=== PATIENT | female | born 1965 | race African-American/Black ===

== ENCOUNTER 2018-11-28 13:03 | Emergency (ER) | payer OTHER ==
[~2018-11-28] VITALS: Ht 167.6 cm; Wt 136.1 kg
[~2018-11-28 13:03] MED LIST: ASPI-1205 PO; LEVE1000 PO; LISI-420 PO; METO25TA PO
--- NOTE | 2018-11-28 13:20 | NUR ---
PT WHEELCHAIRED TO ER BED 01
[2018-11-28 13:30] VITALS: BP 131/66
--- NOTE | 2018-11-28 14:00 | NUR ---
PT BIB FAMILY TO ER WITH C/O GENERALISED WEAKNESS SINCE THIS MORNING. PER PT , GOT BAD ESPINAL , TOOK HYDRALAZINE 50 MG, METOPROLOL 50 MG AND ASPIRIN 81 MH AT [facility]. PT ALSO TOOK 50 MG HYDRALIZINE AT HOME BEFORE GOING TO [facility]. PT HAS RT SIDED WEAKNESS DUE TO STROKE IN 2014. CMS PRESENT ON BOTH HAND, DENIES ANY CHEST PAIN AT THIS TIME, CLEAR SPEECH, AOX4. AT THE BEDSIDE. ER MD TO SEE THE PT. HX-- STROKE 2015, HTN, SIEZURE MEDS: METOPROLOL, HYDRALIZINE, ASPIRIN ALLERGIC TO PCN
[2018-11-28] MEDS ORDERED: MECLIZINE 25 MG TAB PO ONE (14:20)
[2018-11-28] MEDS ORDERED: ONDANSETRON 4 MG/2 ML VIAL IVP ONE ×2 (14:20)
[2018-11-28] MEDS ORDERED: FAMOTIDINE 20 MG/2 ML VIAL IVP ONE (14:20)
[2018-11-28] MEDS ORDERED: NACL 0.9% 1,000 ML IV ONE (14:20)
[2018-11-28 14:47] LABS: BASOPHILS # (AUTO) 0.1 K/uL (0.00-0.22); BASOPHILS % (AUTO) 1.2 % (0.0-2.0); EOSINOPHILS # (AUTO) 0.2 K/uL (0-0.4); EOSINOPHILS % (AUTO) 2.8 % (0.0-4.0); HEMATOCRIT 34.1 % (36-48); HEMOGLOBIN 10.6 g/dL (12.0-16.0); LYMPHOCYTES # (AUTO) 2.4 K/uL (2.5-16.5); LYMPHOCYTES % (AUTO) 38.7 % (20.5-51.1); MEAN CORPUSCULAR HEMOGLOBIN 24 pg (27-31); MEAN CORPUSCULAR HGB CONC 31 g/dL (33-37); MEAN CORPUSCULAR VOLUME 76.6 fL (80-94); MONOCYTES # (AUTO) 0.5 K/uL (0.8-1.0); MONOCYTES % (AUTO) 7.5 % (1.7-9.3); NEUTROPHILS # (AUTO) 3.1 K/uL (1.8-7.7); NEUTROPHILS % (AUTO) 49.8 % (42.2-75.2); PLATELET COUNT (AUTO) 287 K/uL (140-450); RED BLOOD CELL COUNT(AUTO) 4.46 MIL/uL (4.20-5.40); RED CELL DISTRIBUTION WIDTH 16.1 % (11.6-13.7); WHITE BLOOD COUNT (AUTO) 6.1 K/uL (4.8-10.8)
[2018-11-28 14:50] LABS: APPEARANCE,URINE SL CLOUDY (CLEAR); BILIRUBIN,URINE NEGATIVE (NEGATIVE); BLOOD, URINE NEGATIVE (NEGATIVE); COLOR,URINE YELLOW (YELLOW); LEUKOCYTE ESTERASE ,URINE NEGATIVE (NEGATIVE); NITRITE, URINE NEGATIVE (NEGATIVE); UGLUCOSE NEGATIVE (NEGATIVE)
--- NOTE | 2018-11-28 15:00 | NUR ---
x-ray at bedside
[2018-11-28 15:04] LABS: ACETONE, SERUM NEGATIVE (NEGATIVE); ALBUMIN 2.8 g/dL (3.4-5.0); AMYLASE 47 U/L (25-115); ANION GAP 6.1 (8-16); ASPARTATE AMINOTRANSFERASE 21 U/L (15-37); CARBON DIOXIDE 33.1 mmol/L (21-32); CHLORIDE 101 mmol/L (98-107); CREATININE 0.9 mg/dL (0.6-1.3); GFR ARICAN-AMERICAN 85 mL/min (>90); GLUCOSE 97 mg/dL (74-106); LIPASE 74 U/L (73-393); MAGNESIUM 1.7 mg/dL (1.8-2.4); POTASSIUM 4.2 mmol/L (3.5-5.1); SODIUM SERUM 136 mmol/L (136-145); TOTAL BILIRUBIN 0.2 mg/dL (0.0-1.0); UREA NITROGEN, BLOOD 15 mg/dL (7-18)
--- NOTE | 2018-11-28 15:34 | NUR ---
PT WT [address] UNABLE TO BE COMPLETED, MACHINE CAPACITY 350 LBS. AWARE .
--- NOTE | 2018-11-28 15:43 | NUR ---
PT TOOK HOME MED KEPPRA 1000 MG AT BEDSIDE, STATES TAKES IT REGULARLY HER HX OF SEIZURE.
[2018-11-28 16:50] VITALS: BP 129/75
--- NOTE | 2018-11-28 16:50 | NUR ---
Patient discharged with v/s stable. Written and verbal after care instructions given and explained. Patient alert, oriented and verbalized understanding of instructions. Wheel Chair Assisted with to car. All questions addressed prior to discharge. ID band removed. Patient advised to follow up with PMD. Rx of ANTIVERT AND PEDISLYTE given. Patient educated on indication of medication including possible reaction and side effects. Opportunity to ask questions provided and answered.
== END 2018-11-28 16:50 | disposition home or self-care (01) ==
LOC: MED 13:03
DX: T67.5XXA Heat exhaustion, unspecified, initial encounter (principal); R42 Dizziness and giddiness; R53.1 Weakness; E66.01 Morbid (severe) obesity due to excess calories; I10 Essential (primary) hypertension; Z68.42 Body mass index [BMI] 45.0-49.9, adult; Z86.73 Personal history of transient ischemic attack (TIA), and cerebral infarction without residual deficits; Z88.0 Allergy status to penicillin; Z79.82 Long term (current) use of aspirin; Z79.899 Other long term (current) drug therapy; X30.XXXA Exposure to excessive natural heat, initial encounter; Y93.89 Activity, other specified; Y92.89 Other specified places as the place of occurrence of the external cause; Y99.8 Other external cause status
CPT/HCPCS: 36415; 71045; 80053; 80173; 81003; 82009; 82150; 83690; 83735; 84484; 85025; 85610; 93005; 96361; 96374; 96375; 99284; J2405; J3490; J7030; J8597; Q0092